=== PATIENT | male | born 1935 | race Caucasian/White ===

== ENCOUNTER 2017-06-28 09:48 | Emergency (ER) | payer MEDICARE, OTHER ==
--- NOTE | 2017-06-28 11:18 | RAD ---
TWO VIEWS OF THE CHEST: DATE: 06/28/17. HISTORY: Cough and sinus drainage. FINDINGS: Diffuse increased linear interstitial density noted with pulmonary hyperinflation. Thoracic aorta is prominent/tortuous with atherosclerotic calcification in the aortic arch. The cardiac silhouette is prominent as well. No lobar consolidation or alveolar edema. IMPRESSION: Extensive linear interstitial prominence with pulmonary hyperinflation suggests chronic obstructive p ulmonary disease. No lobar consolidation or alveolar edema. POS: [facility]
== END 2017-06-28 10:36 | disposition home or self-care (01) ==
LOC: SCSER 09:48
DX: J40 Bronchitis, not specified as acute or chronic (principal); F17.210 Nicotine dependence, cigarettes, uncomplicated
CPT/HCPCS: 71020; 99406

== ENCOUNTER 2017-09-25 10:50 | Emergency (ER) | payer MEDICARE, OTHER ==
[~2017-09-25 10:50] MED LIST: Iopamidol 370 76% 100 ML VIAL ONE
[2017-09-25] MEDS ORDERED: HYDROcodone/Acetaminophen 5/325 mg Tablet ONE (11:21)
[2017-09-25 12:01] LABS: #Basophils 0.1 thou/uL (0.0-0.2); #Eosinphils 0.1 thou/uL (0.0-0.7); #Lymphocytes 1.8 thou/uL (1.20-3.40); #Monocytes 0.9 thou/uL (0.11-0.59); #Neutrophils 3.4 thou/uL (1.40-6.50); %Basophils 1.1 % (0.0-1.0); %Lymphocytes 29.4 % (21.0-51.0); %Monocytes 14.7 % (0.0-10.0); %Neutrophils 53.8 % (42.0-75.0); Hemoglobin 15.6 g/dL (14.0-18.0); Mean Corpuscular HGB CONC 32.8 g/dL (32.0-36.0); Mean Corpuscular Volume 91.5 fl (80.0-94.0); Mean Platelet Volume 8.4 fL (7.4-10.4); Platelet Count 149 thou/uL (130-400); RBC Distribution Width 13.9 % (11.5-14.5); Red Blood Cell (RBC) Count 5.19 mill/uL (4.70-6.10); White Blood Cell (WBC) Count 6.3 thou/uL (4.8-10.8)
[2017-09-25 12:10] LABS: Anion Gap 17 mmol/L (10-20); BUN (Urea Nitrogen) 14 mg/dL (8.4-25.7); Calc. Creatinine Clearance 0 mL/min (70-130); Calcium 9.6 mg/dL (7.8-10.44); Carbon Dioxide 23 mmol/L (23-31); Chloride 105 mmol/L (98-107); Estimated GFR-MDRD 81; Glucose 76 mg/dL (83-110); Potassium 4.6 mmol/L (3.5-5.1); Sodium 140 mmol/L (136-145)
--- NOTE | 2017-09-25 12:17 | RAD ---
LUMBAR SPINE THREE VIEWS: History: Twisting injury with back pain. FINDINGS: There is a slight scoliotic curvature with convexity to the right and L1-2. There is mild chronic wed ging of the T12 and L1 vertebra. There is mild loss of height at L3, L4, and L5 vertebra. This is pro bably chronic. There is a grade II spondylolisthesis at L5-S1 with loss of disc space at L5-S1. There is evidence of posterior spondylolysis at this level. Prominent facet hypertrophy is noted at L4-5 and L5-S1. The aorta is calcified and aneurysmal with diameter measuring up to 3.8 cm AP dimension. IMPRESSION: 1. Grade I-II spondylolisthesis at L5-S1 with loss of disc space and posterior spondylolysis. 2. Prominent hypertrophic degenerative changes of the lumbar spine as described. 3. Mild wedging and loss of vertebral body height of numerous vertebrae which appears chronic. 4. Calcified aorta with aneurysmal dilatation. Code T POS: [id number]
[2017-09-25] MEDS ORDERED: Ketorolac Tromethamine 30 MG/ML VIAL ONE (13:15)
--- NOTE | 2017-09-25 14:01 | CT ---
CT AORTOGRAM OF ABDOMEN AND PELVIS WITH CONTRAST: TECHNIQUE: Multiple axial tomograms were obtained through the abdomen and pelvis without IV enhancement in the a rterial phase following an angio protocol with multiplanar reconstruction and 3D post processing. HISTORY: Back pain. Abdominal aneurysm noted on lumbar spine films. Assess aortic aneurysm. FINDINGS: There are atherosclerotic changes seen involving the abdominal aorta. Mild ectasia of the mid abdomi nal aorta with diameter measured at approximately 2.8 cm. There is an area of saccular aneurysmal di latation involving the distal abdominal aorta just up above the bifurcation measuring approximately 3 .3 cm diameter. Common iliac arteries are mildly ectatic, each measuring 1.5 to 1.8 cm. There is no evidence of aortic dissection. There is no significant stenosis at the origin of the celiac artery or superior mesenteric artery. A therosclerotic calcifications are seen at the origin of both of these vessels. Atherosclerotic change is seen in the renal arteries. No definite renal artery stenosis identified. There are small bilateral pleural effusions and bibasilar atelectasis. Liver, spleen, and pancreas are unremarkable. Bowel loops unremarkable. Adrenal glands and kidneys u nremarkable. The urinary bladder is distended. The prostate is mildly enlarged with prostatic calci fication seen. There is a grade I-II spondylolisthesis at L5-S1 with posterior spondylysis which was described on p kaden films. IMPRESSION: 1. Atherosclerotic changes in the abdominal aorta with mild aneurysmal dilatation of the distal abdo tiffany aorta. No evidence of dissection. 2. There are small bilateral pleural effusions. POS: [facility]
== END 2017-09-25 13:55 | disposition home or self-care (01) ==
LOC: SCSER 10:50
DX: S33.5XXA Sprain of ligaments of lumbar spine, initial encounter (principal); I71.4 Abdominal aortic aneurysm, without rupture; F17.210 Nicotine dependence, cigarettes, uncomplicated; X50.0XXA Overexertion from strenuous movement or load, initial encounter
CPT/HCPCS: 72100; 74175; 80048; 85025; 96374; J1885

== ENCOUNTER 2017-11-18 09:20 | Emergency (ER) | payer MEDICARE, OTHER ==
--- NOTE | 2017-11-18 09:55 | RAD ---
CHEST PA AND LATERAL: History: 82-year-old male with history of cough and chest congestion for three days. Comparison: 06-28-17 FINDINGS: Persistent cardiomegaly. Atherosclerosis of the aorta with ectasia. Prominent bilateral interstitial and linear and some reticular nodular parenchymal changes throughout both lungs, stable. No new confl uent process. No pleural effusion. IMPRESSION: Stable cardiomegaly and bilateral linear, interstitial, and reticular nodular parenchymal changes wit hout new confluent pneumonia or other acute process. POS: [id number]
== END 2017-11-18 10:39 | disposition home or self-care (01) ==
LOC: SCSER 09:20
DX: J06.9 Acute upper respiratory infection, unspecified (principal); F17.210 Nicotine dependence, cigarettes, uncomplicated; J40 Bronchitis, not specified as acute or chronic
CPT/HCPCS: 71046; 99406

== ENCOUNTER 2019-04-30 09:55 | Emergency (ER) | payer OTHER, MEDICARE | END 2019-04-30 10:20 | disposition home or self-care (01) | LOC: SCSER 09:55 | DX: Z48.817 Encounter for surgical aftercare following surgery on the skin and subcutaneous tissue (principal) | CPT/HCPCS: 99281 ==

== ENCOUNTER 2023-08-23 09:30 | Inpatient (IN) | payer OTHER, MEDICARE ==
[2023-08-23 09:59] LABS: Hematocrit 38.3 % (42.0-52.0); Hemoglobin 13.3 g/dL (14.0-18.0); Manual Diff?? YES; Mean Corpuscular HGB CONC 34.7 g/dL (32.0-36.0); Mean Corpuscular Hemoglobin 34.7 pg (27.0-31.0); Mean Platelet Volume 10.4 fL (7.4-10.4); Platelet Count 220 10x3/uL (130-400); RBC Distribution Width 16.9 % (11.5-14.5); Red Blood Cell (RBC) Count 3.83 mill/uL (4.70-6.10); White Blood Cell (WBC) Count 16.6 10x3/uL (4.8-10.8)
[2023-08-23 10:10] LABS: Delete Auto Diff?? YES
[2023-08-23 10:13] LABS: INR-International Normal Ratio 1.7; PTT 42.7 sec (22.9-36.1)
[2023-08-23 10:18] LABS: Critical Call Chem-Lactate NUR.LM21@1017
[2023-08-23 10:26] LABS: ALT (SGPT) 11 U/L (8-55); AST (SGOT) 25 U/L (5-34); Alkaline Phosphatase 159 U/L (40-110); Anion Gap 20 mmol/L (10-20); BUN (Urea Nitrogen) 23 mg/dL (8.4-25.7); Bilirubin, Total 3.4 mg/dL (0.2-1.2); Calc. Creatinine Clearance 0 mL/min (70-130); Calcium 8.7 mg/dL (7.8-10.44); Carbon Dioxide 20 mmol/L (23-31); Chloride 105 mmol/L (98-107); Estimated GFR 47; Globulin 3.9 g/dL (2.4-3.5); Glucose 132 mg/dL (83-110); Protein, Total 6.9 g/dL (5.8-8.1); Sodium 141 mmol/L (136-145)
[2023-08-23] MEDS ORDERED: cefTRIAXone (ROCEPHIN) 1 GM VIAL ONE (10:26)
[2023-08-23] MEDS ORDERED: Sodium Chloride 0.9% 100 ML ONE (10:26)
[2023-08-23] MEDS ORDERED: Azithromycin 500 MG VIAL ONE (10:26)
[2023-08-23 10:38] LABS: Anisocytosis SLIGHT = 6-15 cells HPF (0-5); Band 12 % (5-11); Burr Cells SLIGHT = 2-5 cells HPF (0-1); CellaVision Operator ID LAB.NR; Large Platelets 2.9 % (0-5); Lymphocytes 2 % (21-51); Macrocytosis MODERATE=16-30 cells HPF (0-5); Monocytes 8 % (0-10); Neutrophil 79 % (42-75); Platelet Adequacy Comment Platelets Normal; Polychromasia SLIGHT = 2-3 cells HPF (0-2); Total Cell Count 103
[2023-08-23 11:56] LABS: SARS-CoV-2 NAA Rapid Test DETECTED (NotDetected)
[2023-08-23 12:55] LABS: Lactic Acid 2.9 mmol/L (0.5-2.2)
[2023-08-23] MEDS ORDERED: Ondansetron PF 4 MG/2 ML Vial IVP PRN (14:18)
[2023-08-23] MEDS ORDERED: Acetaminophen 325 MG TAB PO PRN (14:18)
[2023-08-23] MEDS ORDERED: NOREPINEPHRINE 8 MG/250 ML-D5W 250 ML ONE (19:54)
[2023-08-23] MEDS ORDERED: Ipratropium/Albuterol 3 ML NEB NEB PRN (20:11)
[2023-08-23] MEDS ORDERED: Albumin 25% 25 GM (100 mL) BOT IVPB SCH (22:00)
[2023-08-23] MEDS ORDERED: NOREPINEPHRINE 8 MG/250 ML-D5W 250 ML IVPB SCH (23:30)
[2023-08-24 00:41] VITALS: BMI 23.1
[2023-08-24] MEDS ORDERED: Sodium Chloride 0.9% 500 ML IV SCH ×2 (01:45→03:30)
[2023-08-24 06:17] LABS: Hematocrit 42.1 % (42.0-52.0); Hemoglobin 13.6 g/dL (14.0-18.0); Manual Diff?? YES; Mean Corpuscular HGB CONC 32.3 g/dL (32.0-36.0); Mean Corpuscular Hemoglobin 32.2 pg (27.0-31.0); Mean Corpuscular Volume 99.8 fl (78.0-98.0); Mean Platelet Volume 10.1 fL (7.4-10.4); Platelet Count 252 10x3/uL (130-400); RBC Distribution Width 16.7 % (11.5-14.5); Red Blood Cell (RBC) Count 4.22 mill/uL (4.70-6.10); White Blood Cell (WBC) Count 16.6 10x3/uL (4.8-10.8)
[2023-08-24 06:18] LABS: Delete Auto Diff?? YES
[2023-08-24 07:10] LABS: Lactic Acid 2.9 mmol/L (0.5-2.2)
[2023-08-24 07:19] LABS: ALT (SGPT) 10 U/L (8-55); AST (SGOT) 29 U/L (5-34); Albumin 2.7 g/dL (3.4-4.8); Alkaline Phosphatase 149 U/L (40-110); Anion Gap 21 mmol/L (10-20); BUN (Urea Nitrogen) 36 mg/dL (8.4-25.7); Bilirubin, Total 2.7 mg/dL (0.2-1.2); Calc. Creatinine Clearance 25 mL/min (70-130); Calcium 8.4 mg/dL (7.8-10.44); Carbon Dioxide 19 mmol/L (23-31); Chloride 107 mmol/L (98-107); Estimated GFR 34; Globulin 3.1 g/dL (2.4-3.5); Glucose 102 mg/dL (83-110); Protein, Total 5.8 g/dL (5.8-8.1); Sodium 143 mmol/L (136-145)
[2023-08-24 07:27] LABS: Anisocytosis SLIGHT = 6-15 cells HPF (0-5); Band 6 % (5-11); Burr Cells SLIGHT = 2-5 cells HPF (0-1); CellaVision Operator ID LAB.NR; Lymphocytes 3 % (21-51); Macrocytosis SLIGHT = 6-15 cells HPF (0-5); Monocytes 7 % (0-10); Neutrophil 84 % (42-75); Platelet Adequacy Comment Platelets Normal; Poikilocytosis SLIGHT = 6-15 cells HPF (0-5); Polychromasia SLIGHT = 2-3 cells HPF (0-2); Total Cell Count 100
[2023-08-24] MEDS: Ipratropium/Albuterol 3 ML NEB NEB SCH ×3 (07:58→18:36)
[2023-08-24] MEDS ORDERED: Enoxaparin 40 MG (0.4 mL) SYRINGE SC SCH (09:00)
[2023-08-24] MEDS ORDERED: Fluticasone Propionate Nasal Spray 16 gm Bottle NASAL SCH (09:00)
[2023-08-24] MEDS ORDERED: Azithromycin 500 MG in Sodium Chloride 0.9% 250 ML 250 ML IVPB SCH (10:00)
[2023-08-24] MEDS ORDERED: cefTRIAXone\\ROCEPHIN 1 GM in Sodium Chloride 0.9% 100 ML IVPB SCH (10:00)
[2023-08-24 10:02] VITALS: BP 100/56
[2023-08-24] MEDS ORDERED: Furosemide 40 MG (4 mL) VIAL SLOW IVP SCH (11:00)
[2023-08-24] MEDS ORDERED: Albumin 25% 25 GM (100 mL) BOT IVPB SCH (11:00)
[2023-08-24 17:37] LABS: Legionella Urinary Ag Negative (Negative); Strep pneumo Urine Ag NEGATIVE (NEGATIVE)
[2023-08-24 20:09] VITALS: TEMP 97.5
[2023-08-24] MEDS ORDERED: Lorazepam 2 MG/ML VIAL ONE (22:01)
[2023-08-24] MEDS ORDERED: Lorazepam 2 MG/ML VIAL SLOW IVP SCH (22:15)
[2023-08-24] MEDS ORDERED: EPINEPHrine 1 MG/10 ML Abboject SYRINGE ONE (22:21)
[2023-08-24 22:24] LABS: Base Excess (BEa) -14.7 mEq/L (-2.0 to +3.0); CO2 Tension 40.9 mmHg (35.0-45.0); Calcium, Ionized (arterial) 1.18 mmol/L (1.12-1.30); Carboxyhemoglobin (COHb) 0.8 gm% (0.0-3.0); Hematocrit-ABG 41 % (42.0-52.0); Potassium - ABG Lab 4.99 mmol/L (3.70-5.30)
[2023-08-24] MEDS: EPINEPHrine 1 MG/10 ML Abboject SYRINGE IVP SCH ×2 (22:25→22:40)
[2023-08-24] MEDS ORDERED: DOBUTamine 500 mg/250 ml 250 ML ONE (22:30)
[2023-08-24 22:33] LABS: ALV-art Gradient 362.925 mmHg (0-20); Puncture Site LBA
[2023-08-24] MEDS ORDERED: DOBUTamine 500 mg/250 ml 250 ML IVPB SCH (22:45)
[2023-08-24] MEDS ORDERED: Sodium Bicarb 50 mEq/50 ML VIAL ONE (22:47)
[2023-08-24] MEDS ORDERED: Sodium Bicarb 50 mEq/50 ML VIAL IVP SCH (23:00)
[2023-08-25] MEDS ORDERED: Furosemide 20 MG (2 mL) VIAL SLOW IVP SCH (00:45)
[2023-08-25] MEDS ORDERED: Albumin 25% 25 GM (100 mL) BOT IVPB SCH (00:45)
[2023-08-25] MEDS: Ipratropium/Albuterol 3 ML NEB NEB SCH (00:52)
[2023-08-25] MEDS ORDERED: Morphine 4 MG/ML VIAL ONE (01:08)
[2023-08-25] MEDS ORDERED: Morphine 2 MG/ML VIAL SLOW IVP SCH (01:15)
[2023-08-25] MEDS ORDERED: Lorazepam 2 MG/ML VIAL SLOW IVP PRN (01:30)
[2023-08-25] MEDS ORDERED: Morphine 4 MG/ML VIAL SLOW IVP PRN (01:37)
[2023-08-25] MEDS ORDERED: Enoxaparin 30 MG (0.3 mL) SYRINGE SC SCH (09:00)
[2023-08-25] MEDS ORDERED: Aspirin 81 mg Enteric Coated Tablet PO SCH (09:00)
[2023-08-27] MEDS ORDERED: FLU VACC QS2023(65UP)/MF59C/PF 60 MCG/0.5 ML SYRINGE IM ONE (09:00)
[2023-08-27 13:58] LABS: pH, Arterial 7.141 (7.35-7.45)
[2023-08-27 13:59] LABS: Actual Bicarbonate (HCO3a) 13.6 mEq/L (22-28); O2 Tension (PaO2), arterial 49.4 mmHg (> 60.0)
== END 2023-08-25 02:05 | disposition expired | DRG 871 ==
LOC: ERS 09:30 → ERHOLD 13:55 → CCU 22:54
PROVIDERS: ADMIT Internal Medicine; ATTEND Internal Medicine
PROC: 3E03329 Introduction of Other Anti-infective into Peripheral Vein, Percutaneous Approach (ICD-10-PCS; 2023-08-23)
PROC: 3E033XZ Introduction of Vasopressor into Peripheral Vein, Percutaneous Approach (ICD-10-PCS; 2023-08-23)
PROC: 5A09457 Assistance with Respiratory Ventilation, 24-96 Consecutive Hours, Continuous Positive Airway Pressure (ICD-10-PCS; 2023-08-23)
PROC: 4A033R1 Measurement of Arterial Saturation, Peripheral, Percutaneous Approach (ICD-10-PCS; principal; 2023-08-24)
PROC: 30233J1 Transfusion of Nonautologous Serum Albumin into Peripheral Vein, Percutaneous Approach (ICD-10-PCS; 2023-08-24)
DX: A41.9 Sepsis, unspecified organism (principal); I21.A1 Myocardial infarction type 2; J18.9 Pneumonia, unspecified organism; J96.01 Acute respiratory failure with hypoxia; U07.1 COVID-19; E87.20 Acidosis, unspecified; Z51.5 Encounter for palliative care; Z66 Do not resuscitate; I48.91 Unspecified atrial fibrillation; I11.0 Hypertensive heart disease with heart failure; I50.9 Heart failure, unspecified; N19 Unspecified kidney failure; Z85.828 Personal history of other malignant neoplasm of skin; Z98.890 Other specified postprocedural states; Z95.0 Presence of cardiac pacemaker; Z79.899 Other long term (current) drug therapy; Z79.82 Long term (current) use of aspirin
CPT/HCPCS: 36415; 36600; 71045; 80053; 82805; 83605; 83735; 83880; 84145; 84443; 84484; 85025; 85610; 85730; 87040; 87077; 87149; 87449; 87899; 93005; 94640; 94660; 94760; J0171; J0456; J0696; J1250; J1650; J1940; J2060; J2270; J3490; J7030; J7050; J7620; P9047